=== PATIENT | female | born 1990 | race Caucasian/White ===

== ENCOUNTER 2020-05-05 10:10 | Inpatient (IN) | payer BC ==
[2020-05-05] MEDS ORDERED: hydrALAZINE 20 MG/ML VIAL SLOW IVP PRN (10:31)
[2020-05-05] MEDS ORDERED: Misoprostol 200 MCG TAB PR PRN (10:31)
[2020-05-05] MEDS ORDERED: Promethazine HCl 25 MG/ML VIAL IM PRN ×2 (10:31→12:52)
[2020-05-05] MEDS ORDERED: Ondansetron PF 4 MG/2 ML Vial IVP PRN ×2 (10:31→12:52)
[2020-05-05] MEDS ORDERED: Acetaminophen 500 MG TAB PO PRN (10:31)
[2020-05-05] MEDS ORDERED: Docusate 100 MG CAP PO PRN (10:31)
[2020-05-05] MEDS ORDERED: Diphenoxylate HCl/Atropine Tablet PO PRN ×2 (10:31)
[2020-05-05] MEDS ORDERED: Lidocaine 1% (PF) 30 ML VIAL SC PRN (10:31)
[2020-05-05] MEDS ORDERED: Butorphanol Tartrate 1 MG/ML VIAL SLOW IVP PRN (10:31)
[2020-05-05] MEDS ORDERED: HYDROcodone/Acetaminophen 5/325 mg Tablet PO PRN ×2 (10:31)
[2020-05-05] MEDS ORDERED: Ibuprofen 800 MG TAB PO PRN (10:31)
[2020-05-05] MEDS ORDERED: Lactated Ringer's 1,000 ML IV SCH (10:45)
[2020-05-05 11:21] LABS: Hemoglobin 13.5 g/dL (12.0-15.5); Mean Corpuscular HGB CONC 34.7 g/dL (32.0-36.0); Mean Corpuscular Hemoglobin 31.8 pg (27.0-33.0); Mean Corpuscular Volume 91.7 fl (81.6-98.3); Mean Platelet Volume 9.8 fl (7.4-10.4); Platelet Count 227 10x3/uL (150-450); RBC Distribution Width 12.8 % (11.5-14.5); Red Blood Cell (RBC) Count 4.24 10x6/uL (3.90-5.03); White Blood Cell (WBC) Count 12.3 10x3/uL (3.5-10.5)
[2020-05-05 11:37] VITALS: BMI 27.6
[2020-05-05] MEDS ORDERED: NS w/ Oxytocin 30 units 500 ML IV PRN (11:44)
[2020-05-05 11:56] LABS: Hep B Surf Ag Non-Reactive S/CO (NonReactive)
[2020-05-05 11:57] LABS: Syphilis Antibody Nonreactive (Nonreactive); Syphilis Antibody Index 0.02 S/CO (<1.00 Non-Reactive)
[2020-05-05] MEDS ORDERED: Fentanyl 4 mcg/Bup 0.1% Cadd 100 ML ONE (12:20)
[2020-05-05] MEDS ORDERED: Naloxone HCl 0.4 mg/ml Vial IVP PRN ×2 (12:52)
[2020-05-05] MEDS ORDERED: Lactated Ringer's 500 ML IV PRN (12:52)
[2020-05-05] MEDS ORDERED: Acetaminophen 325 MG TAB PO PRN (12:52)
[2020-05-05] MEDS ORDERED: diphenhydrAMINE 50 MG/ML VIAL IVP PRN (12:52)
[2020-05-05] MEDS ORDERED: ePHEDrine 50 MG/ML VIAL SLOW IVP PRN (12:52)
[2020-05-05] MEDS ORDERED: Fentanyl 4 mcg/Bupivacaine 0.1% Cassette 100 ML EPIDURAL SCH (13:00)
[2020-05-05] MEDS ORDERED: Communication Order-Pharmacy FS SCH (13:00)
[2020-05-05] MEDS ORDERED: NS w/ Oxytocin 30 units 500 ML ONE (15:39)
[2020-05-05] MEDS ORDERED: Terbutaline Sulfate 1 MG/ML VIAL ONE (19:48)
[2020-05-06 00:56] LABS: SARS-CoV-2 PCR by NAA Not Detected (NotDetected)
[2020-05-06] MEDS ORDERED: Preparation H Ointment 28 GM TUBE PR PRN (06:21)
[2020-05-06] MEDS ORDERED: Ondansetron PF 4 MG/2 ML Vial IVP PRN (06:21)
[2020-05-06] MEDS ORDERED: Zolpidem Tartrate 5 MG TAB PO PRN (06:21)
[2020-05-06] MEDS ORDERED: Adacel (T-DAP) 0.5 ML SYRINGE IM ONE (06:21)
[2020-05-06] MEDS ORDERED: hydrALAZINE 20 MG/ML VIAL SLOW IVP PRN (06:21)
[2020-05-06] MEDS ORDERED: Benzocaine-Menthol 82.5 ML CAN TOP PRN (06:21)
[2020-05-06] MEDS ORDERED: Misoprostol 200 MCG TAB VAG PRN (06:21)
[2020-05-06] MEDS ORDERED: HYDROcodone/Acetaminophen 5/325 mg Tablet PO PRN (06:21)
[2020-05-06] MEDS ORDERED: Bisacodyl 10 MG SUPP PR PRN (06:21)
[2020-05-06] MEDS ORDERED: Lanolin Ointment 7 GM TUBE TOP PRN (06:21)
[2020-05-06] MEDS ORDERED: diphenhydrAMINE 25 MG CAP PO PRN (06:21)
[2020-05-06] MEDS ORDERED: Milk Of Magnesia 30 ML UDCUP PO PRN (06:21)
[2020-05-06] MEDS ORDERED: NS / Oxytocin 40 units/1000ml 1,000 ML IV SCH (06:30)
[2020-05-06] MEDS ORDERED: NS w/ Oxytocin 30 units 500 ML ONE (06:31)
[2020-05-06] MEDS: Ibuprofen 800 MG TAB PO SCH ×3 (09:35→23:00)
[2020-05-06] MEDS: Ferrous Sulfate 325 MG TAB PO SCH ×2 (14:02→17:01)
[2020-05-06] MEDS: Docusate Calcium (SURFAK) 240 MG CAP PO SCH ×2 (14:02→23:00)
[2020-05-06] MEDS: Prenatal Vitamin 1 TAB PO SCH (14:02)
[2020-05-06] MEDS: HYDROcodone/Acetaminophen 5/325 mg Tablet PO PRN (23:11)
[2020-05-07 07:44] VITALS: BP 111/66; TEMP 98.5
[2020-05-07] MEDS: Ferrous Sulfate 325 MG TAB PO SCH (08:20)
[2020-05-07] MEDS: Prenatal Vitamin 1 TAB PO SCH (08:59)
[2020-05-07] MEDS: Ibuprofen 800 MG TAB PO SCH (08:59)
[2020-05-07] MEDS: Docusate Calcium (SURFAK) 240 MG CAP PO SCH (08:59)
[2020-05-07] MEDS: HYDROcodone/Acetaminophen 5/325 mg Tablet PO PRN (09:00)
== END 2020-05-07 13:30 | disposition home or self-care (01) | DRG 806 ==
LOC: CSHLD/OP 10:10 → CSHLD 10:18 → CSHPP 05-06 11:38
PROVIDERS: ADMIT Obstetrics & Gynecology; ATTEND Obstetrics & Gynecology
PROC: 10E0XZZ Delivery of Products of Conception, External Approach (ICD-10-PCS; principal; 2020-05-06)
PROC: 0KQM0ZZ Repair Perineum Muscle, Open Approach (ICD-10-PCS; 2020-05-06)
PROC: 10907ZC Drainage of Amniotic Fluid, Therapeutic from Products of Conception, Via Natural or Artificial Opening (ICD-10-PCS; 2020-05-06)
DX: O69.1XX0 Labor and delivery complicated by cord around neck, with compression, not applicable or unspecified (principal); O99.354 Diseases of the nervous system complicating childbirth; Z37.0 Single live birth; Z20.822 Contact with and (suspected) exposure to COVID-19; K21.9 Gastro-esophageal reflux disease without esophagitis; G43.909 Migraine, unspecified, not intractable, without status migrainosus; O99.62 Diseases of the digestive system complicating childbirth; O76 Abnormality in fetal heart rate and rhythm complicating labor and delivery; O70.1 Second degree perineal laceration during delivery; Z3A.39 39 weeks gestation of pregnancy
CPT/HCPCS: 36415; 51702; 85027; 85461; 86780; 86850; 86900; 86901; 87340; 87635; 90384; 96372; J2405; J2590; J3105; U0003; U0005

== ENCOUNTER 2024-02-22 00:31 | Emergency (ER) | payer BC ==
[2024-02-22] MEDS ORDERED: HYDROcodone/Acetaminophen 5/325 mg Tablet ONE (00:54)
== END 2024-02-22 00:55 | disposition home or self-care (01) ==
LOC: CSHERS 00:31
DX: H60.502 Unspecified acute noninfective otitis externa, left ear (principal)
CPT/HCPCS: 99282